=== PATIENT | female | born 1980 | race Caucasian/White ===

== ENCOUNTER 2018-11-08 19:32 | Emergency (ER) | payer MEDICAID ==
[2018-11-08 22:45] LABS: ADD MAN DIFF? NO
[2018-11-08 22:49] LABS: BASOPHIL # 0.1 10^3/ul (0.0-0.1); BASOPHILS % 0.5 % (0.0-2.0); EOSINOPHILS # 0.1 10^3/ul (0.0-0.5); EOSINOPHILS % 1.3 % (0.0-7.0); HEMATOCRIT 41.1 % (37.0-47.0); HEMOGLOBIN 13.4 g/dl (12.0-16.0); LYMPHOCYTES # 1.9 10^3/ul (0.8-2.9); LYMPHOCYTES % 18.9 % (15.0-51.0); MEAN CORPUSCULAR HGB CONC 32.6 g/dl (32.0-37.0); MEAN CORPUSCULAR VOLUME 85.8 fl (82.0-101.0); MEAN PLATELET VOLUME 11.3 fl (7.4-10.4); MONOCYTE # 0.8 10^3/ul (0.3-0.9); MONOCYTES % 7.7 % (0.0-11.0); NEUTROPHIL # 7.3 10^3/ul (1.6-7.5); NEUTROPHILS % 71.4 % (39.0-77.0); PLATELET COUNT 215 10^3/UL (140-415); RED BLOOD COUNT 4.79 10^6/ul (4.20-5.40)
[2018-11-08 22:49] LABS: WHITE BLOOD COUNT 10.3 10^3/ul (4.8-10.8)
[2018-11-08 22:56] LABS: ADD UMIC YES; UR ASCORBIC ACID NEGATIVE (NEGATIVE); UR BACTERIA FEW /HPF (NONE SEEN); UR BILIRUBIN (Dip) NEGATIVE (NEGATIVE); UR BLOOD (Dip) 3+ mg/dL (NEGATIVE); UR CLARITY CLOUDY (CLEAR); UR COLOR YELLOW (YELLOW); UR GLUCOSE (Dip) NEGATIVE (NEGATIVE); UR KETONES (Dip) TRACE mg/dL (NEGATIVE); UR LEUKOCYTE ESTERASE (Dip) 1+ Leu/ul (NEGATIVE); UR MUCUS MANY /HPF (NONE SEEN); UR NITRITE (Dip) NEGATIVE (NEGATIVE); UR RBC 6 /HPF (0-5); UR SPECIFIC GRAVITY (Dip) 1.021 (1.003-1.030); UR SQUAMOUS EPITHELIAL CELL MODERATE /HPF (FEW); UR TOTAL PROTEIN (Dip) NEGATIVE (NEGATIVE); UR UROBILINOGEN (Dip) NEGATIVE (NEGATIVE); UR WBC 10 /HPF (0-5)
== END 2018-11-09 00:26 | disposition home or self-care (01) ==
LOC: FTE 11-09 00:26
DX: O20.9 Hemorrhage in early pregnancy, unspecified (principal); O23.41 Unspecified infection of urinary tract in pregnancy, first trimester; R10.2 Pelvic and perineal pain; Z3A.09 9 weeks gestation of pregnancy
CPT/HCPCS: 36415; 76801; 76817; 81001; 84702; 85025; 86900; 86901; 99284-25

== ENCOUNTER 2018-11-11 00:31 | Emergency (ER) | payer MEDICAID | END 2018-11-11 04:23 | disposition home or self-care (01) | LOC: FTE 00:31 | DX: O26.891 Other specified pregnancy related conditions, first trimester (principal); R10.2 Pelvic and perineal pain; Z3A.10 10 weeks gestation of pregnancy | CPT/HCPCS: 76801; 84702; 99284-25 ==

== ENCOUNTER 2019-05-15 15:46 | Outpatient (CLI) | payer MEDICAID ==
[2019-05-15 20:14] LABS: ADD UMIC YES; UR ASCORBIC ACID NEGATIVE (NEGATIVE); UR BILIRUBIN (Dip) NEGATIVE (NEGATIVE); UR BLOOD (Dip) NEGATIVE (NEGATIVE); UR CLARITY SLIGHTLY CLOUDY (CLEAR); UR COLOR AMBER (YELLOW); UR GLUCOSE (Dip) NEGATIVE (NEGATIVE); UR KETONES (Dip) TRACE mg/dL (NEGATIVE); UR LEUKOCYTE ESTERASE (Dip) NEGATIVE Leu/ul (NEGATIVE); UR MUCUS MANY /HPF (NONE SEEN); UR NITRITE (Dip) NEGATIVE (NEGATIVE); UR RBC 1 /HPF (0-5); UR SPECIFIC GRAVITY (Dip) 1.028 (1.003-1.030); UR SQUAMOUS EPITHELIAL CELL FEW /HPF (FEW); UR TOTAL PROTEIN (Dip) 1+ mg/dl (NEGATIVE); UR UROBILINOGEN (Dip) 1+ mg/dL (NEGATIVE); UR WBC 4 /HPF (0-5)
== END 2019-05-15 20:47 | disposition home or self-care (01) ==
LOC: OBT 15:46 → L-D 15:48 → OBT 20:47
DX: O36.8130 Decreased fetal movements, third trimester, not applicable or unspecified (principal); O34.219 Maternal care for unspecified type scar from previous cesarean delivery; O09.523 Supervision of elderly multigravida, third trimester; Z3A.38 38 weeks gestation of pregnancy
CPT/HCPCS: 76815; 76818; 81001; 87086

== ENCOUNTER 2019-05-17 14:24 | Outpatient (CLI) | payer MEDICAID ==
[2019-05-17] MEDS: LACTATED RINGER'S 1,000 ML IV ×2 (16:29→19:10)
[2019-05-17] MEDS ORDERED: METOCLOPRAMIDE 10 MG INJ IV (16:30)
[2019-05-17] MEDS ORDERED: CITRIC ACID/NA CITRATE 30 ML CUP PO (16:30)
[2019-05-17] MEDS ORDERED: FAMOTIDINE 20 MG INJ IV (16:30)
[2019-05-17 18:39] LABS: ADD MAN DIFF? NO
[2019-05-17 18:42] LABS: WHITE BLOOD COUNT 7.3 10^3/ul (4.8-10.8)
[2019-05-17 18:42] LABS: BASOPHIL # 0.1 10^3/ul (0.0-0.1); BASOPHILS % 0.7 % (0.0-2.0); EOSINOPHILS # 0.1 10^3/ul (0.0-0.5); HEMATOCRIT 32.8 % (37.0-47.0); HEMOGLOBIN 10.4 g/dl (12.0-16.0); LYMPHOCYTES # 1.3 10^3/ul (0.8-2.9); LYMPHOCYTES % 17.1 % (15.0-51.0); MEAN CORPUSCULAR HEMOGLOBIN 25.6 pg (29.0-33.0); MEAN CORPUSCULAR HGB CONC 31.7 g/dl (32.0-37.0); MEAN CORPUSCULAR VOLUME 80.8 fl (82.0-101.0); MEAN PLATELET VOLUME 12.7 fl (7.4-10.4); MONOCYTE # 0.6 10^3/ul (0.3-0.9); MONOCYTES % 8.4 % (0.0-11.0); NEUTROPHIL # 5.3 10^3/ul (1.6-7.5); PLATELET COUNT 227 10^3/UL (140-415); RED BLOOD COUNT 4.06 10^6/ul (4.20-5.40); RED CELL DISTRIBUTION WIDTH 14.4 % (11.5-14.5)
[2019-05-17 18:45] LABS: INR 0.88; PT RATIO 0.9
[2019-05-17 18:46] LABS: PARTIAL THROMBOPLASTIN TIME 26.3 Sec (23.0-35.0)
[2019-05-17 20:13] LABS: ADD UMIC NO; UR ASCORBIC ACID NEGATIVE (NEGATIVE); UR BILIRUBIN (Dip) NEGATIVE (NEGATIVE); UR BLOOD (Dip) NEGATIVE (NEGATIVE); UR CLARITY CLEAR (CLEAR); UR COLOR AMBER (YELLOW); UR GLUCOSE (Dip) NEGATIVE (NEGATIVE); UR KETONES (Dip) NEGATIVE (NEGATIVE); UR LEUKOCYTE ESTERASE (Dip) NEGATIVE Leu/ul (NEGATIVE); UR NITRITE (Dip) NEGATIVE (NEGATIVE); UR SPECIFIC GRAVITY (Dip) 1.017 (1.003-1.030); UR TOTAL PROTEIN (Dip) NEGATIVE (NEGATIVE); UR UROBILINOGEN (Dip) NEGATIVE (NEGATIVE)
[2019-05-18 15:16] LABS: RAPID PLASMA REAGIN NONREACTIVE (NR)
== END 2019-05-17 21:11 | disposition home or self-care (01) ==
LOC: OBT 14:24 → L-D 14:24 → OBT 21:11
DX: O62.9 Abnormality of forces of labor, unspecified (principal); O09.523 Supervision of elderly multigravida, third trimester; Z3A.37 37 weeks gestation of pregnancy
CPT/HCPCS: 36415; 76818; 81003; 85025; 85610; 85730; 86592; 86850; 86900; 86901

== ENCOUNTER 2019-05-29 07:05 | Inpatient (IN) | payer MEDICAID ==
[2019-05-29] MEDS ORDERED: OXYTOCIN 30 UNITS/LR 500 ML IV ×3 (07:30→17:00)
[2019-05-29] MEDS ORDERED: METHYLERGONOVINE 0.2 MG INJ IM ×2 (07:30→17:00)
[2019-05-29] MEDS ORDERED: CARBOPROST 250 MCG INJ IM ×2 (07:30→17:00)
[2019-05-29] MEDS ORDERED: MISOPROSTOL 200 MCG TAB PR ×2 (07:30→17:00)
[2019-05-29 07:50] LABS: ADD MAN DIFF? NO
[2019-05-29] MEDS: LACTATED RINGER'S 1,000 ML IV ×3 (07:58→15:09)
[2019-05-29 07:59] LABS: WHITE BLOOD COUNT 7.9 10^3/ul (4.8-10.8)
[2019-05-29 07:59] LABS: BASOPHIL # 0.1 10^3/ul (0.0-0.1); BASOPHILS % 0.6 % (0.0-2.0); EOSINOPHILS # 0.1 10^3/ul (0.0-0.5); EOSINOPHILS % 1.1 % (0.0-7.0); HEMOGLOBIN 10.9 g/dl (12.0-16.0); LYMPHOCYTES # 1.3 10^3/ul (0.8-2.9); LYMPHOCYTES % 16.1 % (15.0-51.0); MEAN CORPUSCULAR HEMOGLOBIN 25.3 pg (29.0-33.0); MEAN CORPUSCULAR HGB CONC 32.1 g/dl (32.0-37.0); MEAN CORPUSCULAR VOLUME 78.9 fl (82.0-101.0); MEAN PLATELET VOLUME 12.7 fl (7.4-10.4); MONOCYTE # 0.7 10^3/ul (0.3-0.9); MONOCYTES % 8.7 % (0.0-11.0); NEUTROPHIL # 5.7 10^3/ul (1.6-7.5); NEUTROPHILS % 72.7 % (39.0-77.0); PLATELET COUNT 203 10^3/UL (140-415); RED BLOOD COUNT 4.31 10^6/ul (4.20-5.40); RED CELL DISTRIBUTION WIDTH 16.8 % (11.5-14.5)
[2019-05-29 08:20] LABS: INR 0.82; PARTIAL THROMBOPLASTIN TIME 24.7 Sec (23.0-35.0); PROTIME 11.4 Sec (11.9-14.9); PT RATIO 0.9
[2019-05-29 08:47] LABS: HEPATITIS B SURFACE ANTIGEN NEGATIVE (NEGATIVE)
[2019-05-29] MEDS: ONDANSETRON 4 MG INJ IV (09:55)
[2019-05-29] MEDS: CITRIC ACID/NA CITRATE 30 ML CUP PO (09:55)
[2019-05-29] MEDS ORDERED: OXYTOCIN 10 UNIT INJ ×2 (10:14)
[2019-05-29] MEDS ORDERED: morphine SULFATE/PF (10 MG/10 ML) INJ (10:14)
[2019-05-29] MEDS ORDERED: PHENYLephrine (100 MCG/ML) 10ML SYG (10:14)
[2019-05-29] MEDS ORDERED: DEXAMETHASONE 4 MG/ML 1 ML INJ (10:48)
[2019-05-29] MEDS ORDERED: KETOROLAC 30 MG INJ (10:48)
[2019-05-29] MEDS ORDERED: ONDANSETRON 4 MG INJ (10:48)
[2019-05-29] MEDS ORDERED: METOCLOPRAMIDE 10 MG INJ (10:48)
[2019-05-29] MEDS ORDERED: ONDANSETRON 4 MG INJ IV (12:00)
[2019-05-29] MEDS ORDERED: HYDROmorphONE 0.5 MG/0.5 ML SYG IV ×2 (12:00)
[2019-05-29] MEDS ORDERED: NALBUPHINE HCL (10 MG/1 ML) INJ IV (12:00)
[2019-05-29] MEDS ORDERED: ACETAMINOPHEN 500 MG TAB PO (12:00)
[2019-05-29] MEDS ORDERED: NALOXONE (0.4 MG/ML) INJ IV (12:00)
[2019-05-29] MEDS ORDERED: HYDROCODONE/APAP (5/325) TAB PO (12:00)
[2019-05-29] MEDS ORDERED: DIPHENHYDRAMINE 50 MG INJ IV (12:00)
[2019-05-29] MEDS ORDERED: morphine 2 MG INJ IV ×2 (12:00)
[2019-05-29] MEDS: OXYTOCIN 30 UNITS/LR 500 ML IV ×2 (12:08→15:53)
[2019-05-29] MEDS: CEFAZOLIN 2 GM/50 ML (PMX) 50 ML IVPB (12:12)
[2019-05-29 13:11] LABS: ADD UMIC NO; UR ASCORBIC ACID NEGATIVE (NEGATIVE); UR BILIRUBIN (Dip) NEGATIVE (NEGATIVE); UR BLOOD (Dip) NEGATIVE (NEGATIVE); UR CLARITY SLIGHTLY CLOUDY (CLEAR); UR COLOR AMBER (YELLOW); UR GLUCOSE (Dip) NEGATIVE (NEGATIVE); UR KETONES (Dip) NEGATIVE (NEGATIVE); UR LEUKOCYTE ESTERASE (Dip) NEGATIVE Leu/ul (NEGATIVE); UR MUCUS MANY /HPF (NONE SEEN); UR NITRITE (Dip) NEGATIVE (NEGATIVE); UR RBC 1 /HPF (0-5); UR SPECIFIC GRAVITY (Dip) 1.021 (1.003-1.030); UR SQUAMOUS EPITHELIAL CELL FEW /HPF (FEW); UR TOTAL PROTEIN (Dip) NEGATIVE (NEGATIVE); UR UROBILINOGEN (Dip) 1+ mg/dL (NEGATIVE); UR WBC 4 /HPF (0-5)
[2019-05-29 14:45] LABS: URIC ACID 4.7 mg/dl (3.1-7.9)
[2019-05-29 14:46] LABS: ALANINE AMINOTRANSFERASE 93 IU/L (13-69); ALBUMIN 3.1 g/dl (3.3-4.9); ALBUMIN/GLOBULIN RATIO 1.03; ALKALINE PHOSPHATASE 226 IU/L (42-121); ANION GAP 7 (5-13); ASPARTATE AMINO TRANSFERASE 61 IU/L (15-46); BILIRUBIN,INDIRECT 0.4 mg/dl (0-1.1); BILIRUBIN,TOTAL 0.4 mg/dl (0.2-1.3); BLOOD UREA NITROGEN 7 mg/dl (7-20); CALCIUM 8.6 mg/dl (8.4-10.2); CARBON DIOXIDE 22 mmol/L (21-31); CHLORIDE 109 mmol/L (97-110); Estimated GFR > 60 mL/min (>60); GLUCOSE 99 mg/dl (70-220); POTASSIUM 4.7 mmol/L (3.5-5.1); SODIUM 138 mmol/L (135-144); TOTAL PROTEIN 6.1 g/dl (6.1-8.1)
[2019-05-29] MEDS ORDERED: MAGNESIUM SULFATE 4 GM/100 ML 100 ML (15:16)
[2019-05-29] MEDS: MAGNESIUM SULFATE 4 GM/100 ML 100 ML IV (15:22)
[2019-05-29] MEDS ORDERED: CA GLUCONATE (GM) 10% 10ML INJ IV (15:30)
[2019-05-29] MEDS ORDERED: LABETALOL 200 MG TAB PO (15:30)
[2019-05-29] MEDS: MAGNESIUM SULFATE 20 GM/500 ML 500 ML IV (15:52)
[2019-05-29] MEDS: DEXTROSE 5%-LR 1,000 ML IV (16:59)
[2019-05-29] MEDS ORDERED: METHYLERGONOVINE 0.2 MG TAB PO (17:00)
[2019-05-29] MEDS: SENNA/DOCUSATE NA (8.6MG/50MG) TAB PO (20:59)
[2019-05-29] MEDS: DIPHENHYDRAMINE 50 MG INJ IV (21:36)
[2019-05-29 21:45] LABS: RAPID PLASMA REAGIN NONREACTIVE (NR)
[2019-05-30] MEDS: DEXTROSE 5%-LR 1,000 ML IV ×3 (00:59→16:59)
[2019-05-30 01:27] LABS: MAGNESIUM 4.7 mg/dl (1.7-2.5)
[2019-05-30] MEDS: OXYTOCIN 30 UNITS/LR 500 ML IV (02:37)
[2019-05-30] MEDS: MAGNESIUM SULFATE 20 GM/500 ML 500 ML IV ×3 (02:38→21:09)
[2019-05-30] MEDS: LACTATED RINGER'S 1,000 ML IV ×2 (04:29→12:18)
[2019-05-30] MEDS: IBUPROFEN 800 MG TAB PO ×3 (05:59→23:31)
[2019-05-30] MEDS: HYDROCODONE/APAP (5/325) TAB GTB ×3 (05:59→23:32)
[2019-05-30] MEDS: KETOROLAC 30 MG INJ IV (06:24)
[2019-05-30] MEDS ORDERED: LANOLIN HPA 1 PKT TOP (07:30)
[2019-05-30 08:24] LABS: ADD MAN DIFF? NO
[2019-05-30 08:26] LABS: WHITE BLOOD COUNT 10.2 10^3/ul (4.8-10.8)
[2019-05-30 08:27] LABS: ABNORMAL IP MESSAGE 1; BASOPHILS % 0.4 % (0.0-2.0); EOSINOPHILS # 0.1 10^3/ul (0.0-0.5); EOSINOPHILS % 0.7 % (0.0-7.0); HEMATOCRIT 31.3 % (37.0-47.0); HEMOGLOBIN 10.2 g/dl (12.0-16.0); LYMPHOCYTES # 1.2 10^3/ul (0.8-2.9); LYMPHOCYTES % 11.7 % (15.0-51.0); MEAN CORPUSCULAR HEMOGLOBIN 25.6 pg (29.0-33.0); MEAN CORPUSCULAR HGB CONC 32.6 g/dl (32.0-37.0); MEAN CORPUSCULAR VOLUME 78.6 fl (82.0-101.0); MEAN PLATELET VOLUME 13.1 fl (7.4-10.4); MONOCYTE # 0.9 10^3/ul (0.3-0.9); MONOCYTES % 8.7 % (0.0-11.0); NEUTROPHILS % 77.9 % (39.0-77.0); PLATELET COUNT 174 10^3/UL (140-415); RED BLOOD COUNT 3.98 10^6/ul (4.20-5.40); RED CELL DISTRIBUTION WIDTH 16.7 % (11.5-14.5)
[2019-05-30 08:30] LABS: POSITIVE DIFF @See below
[2019-05-30] MEDS: SENNA/DOCUSATE NA (8.6MG/50MG) TAB PO ×2 (09:29→20:50)
[2019-05-30 14:09] LABS: MAGNESIUM 5.1 mg/dl (1.7-2.5)
[2019-05-30 15:56] LABS: ADD MAN DIFF? NO
[2019-05-30 15:58] LABS: BASOPHILS % 0.3 % (0.0-2.0); EOSINOPHILS # 0.1 10^3/ul (0.0-0.5); HEMOGLOBIN 10.2 g/dl (12.0-16.0); LYMPHOCYTES # 0.9 10^3/ul (0.8-2.9); LYMPHOCYTES % 9.6 % (15.0-51.0); MEAN CORPUSCULAR HEMOGLOBIN 25.4 pg (29.0-33.0); MEAN CORPUSCULAR HGB CONC 32.9 g/dl (32.0-37.0); MEAN CORPUSCULAR VOLUME 77.1 fl (82.0-101.0); MEAN PLATELET VOLUME 11.9 fl (7.4-10.4); MONOCYTE # 0.8 10^3/ul (0.3-0.9); MONOCYTES % 7.9 % (0.0-11.0); NEUTROPHIL # 7.8 10^3/ul (1.6-7.5); NEUTROPHILS % 80.5 % (39.0-77.0); PLATELET COUNT 179 10^3/UL (140-415); RED BLOOD COUNT 4.02 10^6/ul (4.20-5.40); RED CELL DISTRIBUTION WIDTH 16.9 % (11.5-14.5)
[2019-05-30 15:58] LABS: WHITE BLOOD COUNT 9.7 10^3/ul (4.8-10.8)
[2019-05-30 16:17] LABS: ALANINE AMINOTRANSFERASE 95 IU/L (13-69); ALBUMIN 2.9 g/dl (3.3-4.9); ALBUMIN/GLOBULIN RATIO 0.87; ALKALINE PHOSPHATASE 219 IU/L (42-121); ANION GAP 6 (5-13); ASPARTATE AMINO TRANSFERASE 67 IU/L (15-46); BILIRUBIN,INDIRECT 0.3 mg/dl (0-1.1); BILIRUBIN,TOTAL 0.3 mg/dl (0.2-1.3); BLOOD UREA NITROGEN 6 mg/dl (7-20); CALCIUM 6.8 mg/dl (8.4-10.2); CARBON DIOXIDE 25 mmol/L (21-31); CHLORIDE 104 mmol/L (97-110); CREATININE 0.58 mg/dl (0.44-1.00); Estimated GFR > 60 mL/min (>60); GLUCOSE 105 mg/dl (70-220); LACTATE DEHYDROGENASE 871 IU/L (313-618); POTASSIUM 4.2 mmol/L (3.5-5.1); PROTIME 11.2 Sec (11.9-14.9); PT RATIO 0.9; SODIUM 135 mmol/L (135-144); TOTAL PROTEIN 6.2 g/dl (6.1-8.1)
[2019-05-30 16:18] LABS: PARTIAL THROMBOPLASTIN TIME 25.8 Sec (23.0-35.0)
[2019-05-30] MEDS: LANOLIN HPA 1 PKT TOP (16:24)
[2019-05-30] MEDS ORDERED: FERROUS SULFATE (EC) 325 MG TAB PO (19:00)
[2019-05-30] MEDS: FERROUS SULFATE (EC) 325 MG TAB PO (20:50)
[2019-05-30] MEDS: MAGNESIUM HYDROXIDE 30ML CUP PO (23:31)
[2019-05-31] MEDS: HYDROCODONE/APAP (5/325) TAB GTB ×3 (06:52→21:48)
[2019-05-31] MEDS: IBUPROFEN 800 MG TAB PO ×3 (06:53→21:44)
[2019-05-31 08:37] LABS: ADD MAN DIFF? NO
[2019-05-31 08:46] LABS: BASOPHILS % 0.5 % (0.0-2.0); EOSINOPHILS # 0.1 10^3/ul (0.0-0.5); EOSINOPHILS % 1.7 % (0.0-7.0); HEMATOCRIT 31.2 % (37.0-47.0); HEMOGLOBIN 9.9 g/dl (12.0-16.0); LYMPHOCYTES # 1.4 10^3/ul (0.8-2.9); LYMPHOCYTES % 17.7 % (15.0-51.0); MEAN CORPUSCULAR HEMOGLOBIN 25.3 pg (29.0-33.0); MEAN CORPUSCULAR HGB CONC 31.7 g/dl (32.0-37.0); MEAN CORPUSCULAR VOLUME 79.8 fl (82.0-101.0); MEAN PLATELET VOLUME 12.7 fl (7.4-10.4); MONOCYTE # 0.7 10^3/ul (0.3-0.9); MONOCYTES % 9.1 % (0.0-11.0); NEUTROPHIL # 5.7 10^3/ul (1.6-7.5); NEUTROPHILS % 70.3 % (39.0-77.0); PLATELET COUNT 192 10^3/UL (140-415); RED BLOOD COUNT 3.91 10^6/ul (4.20-5.40); RED CELL DISTRIBUTION WIDTH 17.1 % (11.5-14.5)
[2019-05-31 08:46] LABS: WHITE BLOOD COUNT 8.1 10^3/ul (4.8-10.8)
[2019-05-31] MEDS: FERROUS SULFATE (EC) 325 MG TAB PO (09:16)
[2019-05-31] MEDS: SENNA/DOCUSATE NA (8.6MG/50MG) TAB PO ×2 (09:16→21:45)
[2019-05-31] MEDS: HYDROCODONE/APAP (5/325) TAB NGT (09:18)
[2019-05-31] MEDS: hydrOXYzine HCL 25 MG TAB PO (19:56)
[2019-05-31] MEDS: URSODIOL 300 MG CAP PO (21:45)
[2019-05-31] MEDS: TRIAMCINOLONE ACET 0.1% 15 GM CR TOP (21:45)
[2019-06-01] MEDS: hydrOXYzine HCL 10 MG TAB PO ×2 (05:05→14:35)
[2019-06-01] MEDS: HYDROCODONE/APAP (5/325) TAB GTB ×2 (05:47→14:39)
[2019-06-01] MEDS: IBUPROFEN 800 MG TAB PO ×2 (05:47→14:35)
[2019-06-01] MEDS: URSODIOL 300 MG CAP PO ×2 (05:47→14:35)
[2019-06-01] MEDS: SENNA/DOCUSATE NA (8.6MG/50MG) TAB PO (08:31)
[2019-06-01] MEDS: TRIAMCINOLONE ACET 0.1% 15 GM CR TOP ×2 (08:32→14:36)
[2019-06-01] MEDS: FERROUS SULFATE (EC) 325 MG TAB PO (08:32)
[2019-06-01] MEDS: MEASLES,MUMPS,RUBELLA VACCINE INJ SC* (09:00)
[2019-06-01] MEDS: DIPHTH/TET/ACEL PERTUSS (ADULT) 0.5 ML VIAL IM* ×2 (12:09)
[2019-06-01] MEDS: LANOLIN HPA 1 PKT TOP (16:23)
== END 2019-06-01 16:45 | disposition home or self-care (01) | DRG 786 ==
LOC: L-D 07:05 → PP1 16:55
PROC: 10D00Z1 Extraction of Products of Conception, Low, Open Approach (ICD-10-PCS; principal; 2019-05-29)
DX: O65.5 Obstructed labor due to abnormality of maternal pelvic organs (principal); K83.1 Obstruction of bile duct; O26.62 Liver and biliary tract disorders in childbirth; O34.211 Maternal care for low transverse scar from previous cesarean delivery; O14.94 Unspecified pre-eclampsia, complicating childbirth; O99.02 Anemia complicating childbirth; K66.0 Peritoneal adhesions (postprocedural) (postinfection); Z3A.39 39 weeks gestation of pregnancy; Z37.0 Single live birth
CPT/HCPCS: 80053; 81001; 81003; 83615; 83735; 84560; 85025; 85610; 85730; 86592; 86850; 86900; 86901; 87340; 90715; 99464

== ENCOUNTER 2019-06-18 09:37 | Emergency (ER) | payer MEDICAID ==
[2019-06-18 10:18] LABS: ADD MAN DIFF? NO
[2019-06-18] MEDS: TETRACAINE 0.5% 4 ML OPH BOTH EYES (10:19)
[2019-06-18 10:21] LABS: BASOPHIL # 0.1 10^3/ul (0.0-0.1); BASOPHILS % 1.4 % (0.0-2.0); EOSINOPHILS # 0.4 10^3/ul (0.0-0.5); EOSINOPHILS % 5.9 % (0.0-7.0); HEMATOCRIT 38.7 % (37.0-47.0); HEMOGLOBIN 12.1 g/dl (12.0-16.0); LYMPHOCYTES # 1.4 10^3/ul (0.8-2.9); LYMPHOCYTES % 21.6 % (15.0-51.0); MEAN CORPUSCULAR HEMOGLOBIN 25.4 pg (29.0-33.0); MEAN CORPUSCULAR HGB CONC 31.3 g/dl (32.0-37.0); MEAN CORPUSCULAR VOLUME 81.1 fl (82.0-101.0); MEAN PLATELET VOLUME 11.2 fl (7.4-10.4); MONOCYTE # 0.5 10^3/ul (0.3-0.9); MONOCYTES % 8.3 % (0.0-11.0); NEUTROPHIL # 3.9 10^3/ul (1.6-7.5); NEUTROPHILS % 62.5 % (39.0-77.0); PLATELET COUNT 281 10^3/UL (140-415); RED BLOOD COUNT 4.77 10^6/ul (4.20-5.40); RED CELL DISTRIBUTION WIDTH 16.8 % (11.5-14.5)
[2019-06-18 10:21] LABS: WHITE BLOOD COUNT 6.2 10^3/ul (4.8-10.8)
[2019-06-18 10:23] LABS: URINE BLOOD (Dip) POC 2+ (NEGATIVE); URINE GLUCOSE (Dip) POC Negative (NEGATIVE); URINE KETONES (Dip) POC Negative (NEGATIVE); URINE LEUKOCYTE EST (Dip) POC 1+ (NEGATIVE); URINE NITRITE (Dip) POC Negative (NEGATIVE); URINE TOTAL PROTEIN POC 1+ (NEGATIVE)
[2019-06-18 10:40] LABS: PROTIME 12.3 Sec (11.9-14.9)
[2019-06-18 10:42] LABS: ALANINE AMINOTRANSFERASE 25 IU/L (13-69); ALBUMIN 3.9 g/dl (3.3-4.9); ALBUMIN/GLOBULIN RATIO 1.14; ALKALINE PHOSPHATASE 102 IU/L (42-121); ANION GAP 11 (5-13); ASPARTATE AMINO TRANSFERASE 24 IU/L (15-46); BILIRUBIN,INDIRECT 0.2 mg/dl (0-1.1); BILIRUBIN,TOTAL 0.2 mg/dl (0.2-1.3); BLOOD UREA NITROGEN 14 mg/dl (7-20); CALCIUM 9.1 mg/dl (8.4-10.2); CARBON DIOXIDE 25 mmol/L (21-31); CHLORIDE 109 mmol/L (97-110); CREATININE 0.71 mg/dl (0.44-1.00); Estimated GFR > 60 mL/min (>60); GLUCOSE 116 mg/dl (70-220); POTASSIUM 4.4 mmol/L (3.5-5.1); SODIUM 145 mmol/L (135-144); TOTAL PROTEIN 7.3 g/dl (6.1-8.1)
== END 2019-06-18 11:40 | disposition home or self-care (01) ==
LOC: E/R 09:37
DX: O99.89 Other specified diseases and conditions complicating pregnancy, childbirth and the puerperium (principal); H53.8 Other visual disturbances
CPT/HCPCS: 80053; 81003; 85025; 85610; 99283